=== PATIENT | male | born 1950 | race Caucasian/White ===

== ENCOUNTER 2019-02-26 08:14 | Day surgery (SDC) | payer BC ==
[~2019-02-26] VITALS: Ht 165.1 cm; Wt 83.5 kg
[~2019-02-26 08:14] MED LIST: ASPI81TA26 PO; EZET10TA21 PO; LIDOCAINE 2% INJ 100 MG/5 ML SDV (FOR ANES.) As Ordered ONE; LOSA25TA14 PO; METF10004 PO; NS 1,000 ML IV ONE; PROPOFOL 200 MG/20 ML VIAL As Ordered ONE; ROSU5TAB5 PO; VITA500045 PO
[2019-02-26] MEDS ORDERED: PROPOFOL 200 MG/20 ML VIAL As Ordered ONE (09:37)
--- NOTE | 2019-02-26 09:53 | ROOR ---
Patient Name: Kieran Meng Procedure Date: 02/26/2019 9:25 AM Date of : 1950 Age: 68 Room: [facility] Gender: Male Note Status: Finalized Procedure: Total Colonoscopy to Cecum + Cold Snare Polypectomy + Hemoclips Indications: High risk colon cancer surveillance: Personal history of colonic polyps, Last colonoscopy: 2013 Providers: Kiel Pascual MD Referring MD: SONY GALINDO MD Requesting Provider: Medicines: Monitored Anesthesia Care Complications: No immediate complications. Procedure: Pre-Anesthesia Assessment: - The heart rate, respiratory rate, oxygen saturations, blood pressure, adequacy of pulmonary ventilation, and response to care were monitored throughout the procedure. The Colonoscope was introduced through the anus and advanced to the cecum, identified by appendiceal orifice and ileocecal valve. The colonoscopy was performed without difficulty. The patient tolerated the procedure well. The quality of the bowel preparation was excellent. Findings: The perianal and digital rectal examinations were normal. Non-bleeding internal hemorrhoids were found during retroflexion. The hemorrhoids were small and Grade I (internal hemorrhoids that do not prolapse). Multiple sessile polyps were found in the rectum. The polyps were small in size. These polyps were removed with a cold snare. Resection and retrieval were complete. To prevent bleeding after the polypectomy, two hemostatic clips were successfully placed (MR conditional). There was no bleeding at the end of the procedure. The exam was otherwise without abnormality on direct and retroflexion views. Impression: - Non-bleeding internal hemorrhoids. - Multiple small polyps in the rectum, removed with a cold snare. Resected and retrieved. Clips (MR conditional) were placed. - The examination was otherwise normal on direct and retroflexion views. - The exam was otherwise normal to the cecum. Recommendation: - Patient has a contact number available for emergencies. The signs and symptoms of potential delayed complications were discussed with the patient. Return to normal activities tomorrow. Written discharge instructions were provided to the patient. - High fiber diet. - Discharge patient to home. - Continue present medications. - Await pathology results. - Telephone GI clinic for pathology results in 1 week. - Repeat colonoscopy in 5 years for surveillance based on pathology results. - Return to referring physician. - The findings and recommendations were discussed with the patient's family. Kiel Pascual MD Kiel Pascual MD 02/26/2019 9:53:21 AM Electronically signed by Kiel Pascual MD Number of Addenda: 0 Note Initiated On: 02/26/2019 9:25 AM Estimated Blood Loss: Estimated blood loss: none.
[2019-02-26 10:14] VITALS: BP 153/80
== END 2019-02-26 10:16 | disposition home or self-care (01) ==
LOC: M OPP 08:14
PROVIDERS: ATTEND Internal Medicine Gastroenterology
DX: Z12.11 Encounter for screening for malignant neoplasm of colon (principal); Z86.010 Personal history of colon polyps; K64.0 First degree hemorrhoids; K62.1 Rectal polyp; G47.30 Sleep apnea, unspecified; E11.9 Type 2 diabetes mellitus without complications; Z79.82 Long term (current) use of aspirin; Z79.84 Long term (current) use of oral hypoglycemic drugs; Z79.899 Other long term (current) drug therapy; Z87.891 Personal history of nicotine dependence

== ENCOUNTER 2022-07-19 11:09 | Day surgery (SDC) | payer BC ==
[~2022-07-19] VITALS: Ht 165.1 cm; Wt 86.5 kg
[~2022-07-19 11:09] MED LIST changes: +ERGO500029 PO; +IBUP-1114 PO; -LIDOCAINE 2% INJ 100 MG/5 ML SDV (FOR ANES.) As Ordered ONE; +LOSA25TA13 PO; -LOSA25TA14 PO; -PROPOFOL 200 MG/20 ML VIAL As Ordered ONE
[2022-07-19] MEDS ORDERED: propofoL 200 MG/20 ML VIAL As Ordered ONE ×2 (13:31→13:46)
[2022-07-19] MEDS ORDERED: LIDOCAINE 2% 100MG/5ML SDV (FOR ANES.) As Ordered ONE (13:31)
[2022-07-19 14:25] VITALS: BP 162/70
== END 2022-07-19 14:35 | disposition home or self-care (01) ==
LOC: M OPP 11:09
PROVIDERS: ATTEND Internal Medicine Gastroenterology
DX: D12.0 Benign neoplasm of cecum (principal); D12.2 Benign neoplasm of ascending colon; K57.30 Diverticulosis of large intestine without perforation or abscess without bleeding; K64.0 First degree hemorrhoids

== ENCOUNTER → 2022-11-20 | Outpatient (CLI) | payer BC ==
[~2022-11-20] MED LIST changes: -NS 1,000 ML IV ONE
[2022-11-20 17:46] LABS: BASO # 0.1 10^3/uL (0.0-0.2); BASO % 0.5 % (0.0-1.0); EOS # 0.1 10^3/uL (0.0-0.5); EOS % 0.8 % (0.0-3.0); HEMOGLOBIN 16.6 g/dl (13.5-17.5); LYMPH # 2.7 10^3/uL (1.5-5.0); LYMPH % 22.4 % (24.0-44.0); MEAN CORPUSCULAR HGB CONC 34.6 g/dl (32.0-36.5); MEAN CORPUSCULAR VOLUME 95.4 fl (80.0-96.0); MONO % 8.6 % (2.0-8.0); NEUTROPHILS # 8.1 10^3/uL (1.5-8.5); NEUTROPHILS % 67.3 % (36.0-66.0); PLATELET COUNT, AUTOMATED 174 10^3/uL (150-450); RED BLOOD COUNT 5.03 10^6/uL (4.30-6.10); WHITE BLOOD COUNT 12.1 10^3/uL (4.0-10.0)
[2022-11-20 18:06] LABS: URIC ACID 4.9 MG/DL (3.7-9.2)
[2022-11-20 18:09] LABS: RHEUMATOID FACTOR QUANT < 3.5 IU/ML (<14)
[2022-11-20 18:11] LABS: ERYTHROCYTE SEDIMENTATION RATE 29 mm/hr (0-20)
== END ==
LOC: M PLALAB 15:53
PROVIDERS: ATTEND Student in an Organized Health Care Education/Training Program
DX: M25.561 Pain in right knee (principal)